=== PATIENT | male | born 1985 | race Two or more races ===

== ENCOUNTER 2024-01-29 15:34 | Inpatient (IN) | payer MEDICAID, SELFPAY ==
[2024-01-29 16:22] VITALS: BP 136/93; PULSE 93; RESP 20; TEMP 37.1; O2SAT 99; BMI 28.2
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
[2024-01-29] MEDS: Ampicillin Sodium/Sulbactam Na 3 GM in 0.9 % Sodium Chloride 100 ML IV (17:00)
[2024-01-29 17:02] LABS: INTERNATIONAL NORM RATIO 1.2 (0.9-1.1); Prothrombin Time 13.7 SEC (10.9-12.4)
--- NOTE | 2024-01-29 17:09 | PC.NURSE ---
patient comes in from triage, alert/oriented to person place however seems to nod off. iv inserted to rt ac, labs drawn, bc drawn x2, pt placed on cardiac sonographer nsr 70s on monitor,rr equal/non labored O2 sat 100% at this time, pt medicated per order, pt requesting po. pt stated he uses cocaine and denied heroin/fentanyl use. IV abx running per order, call ni within reach, plan of care ongoing.
[2024-01-29 17:14] LABS: Lactic Acid 0.8 mmol/L (0.5-2.0)
[2024-01-29 17:16] LABS: Alanine Aminotransferase 25 U/L (0-40); Albumin Level 4.4 g/dL (3.5-5.0); Alkaline Phosphatase 101 U/L (39-117); Anion Gap 11 (12-20); Aspartate Amino Transferase 29 U/L (5-37); Bilirubin Direct 0.2 mg/dL (0.0-0.5); Bilirubin Total 0.6 mg/dL (0.0-1.0); Blood Urea Nitrogen 12 mg/dL (9-16); C Reactive Protein 5.08 mg/dL (< or = 0.50); Calcium 9.1 mg/dL (8.4-10.2); Carbon Dioxide 25 mmol/L (22-29); Chloride 109 mmol/L (96-108); Estimated Glomerular Filt Rate > 60; Glucose Random 108 mg/dL (60-115); Magnesium 2.1 mg/dL (1.6-2.6); Potassium 3.3 mmol/L (3.3-5.1); Sodium 142 mmol/L (135-145); Total Protein 7.9 g/dL (6.5-8.0)
[2024-01-29 17:42] LABS: MANUAL DIFF FLAG SCAN; SCAN SMEAR FLAG 1
[2024-01-29 17:44] LABS: Basophils Percent Auto 0.3 % (0-2); Eosinophils Absolute Auto 0.2 X10*3/uL (0.0-0.4); Eosinophils Percent Auto 2.1 % (0-4); Hematocrit 39.6 % (42.0-52.0); Hemoglobin 13.3 g/dl (14.0-18.0); Imm Gran Abs Auto 0.02 X10*3/uL (0.00-0.03); Imm Gran Pct Auto 0.2 % (0.0-0.4); Lymphocytes Absolute Auto 1.3 X10*3/uL (1.2-4.9); Mean Corpuscular HGB Conc 33.6 g/dl (31.0-36.0); Mean Corpuscular Hemoglobin 27.9 pg (27.0-33.0); Mean Corpuscular Volume 83.2 fL (80.0-98.0); Mean Platelet Volume 13.7 fL (9.4-12.4); Monocytes Absolute Auto 0.7 X10*3/uL (0.1-1.2); Monocytes Percent Auto 7.8 % (2-11); Neutrophils Absolute Auto 7.1 x10*3/uL (2.0-8.3); Neutrophils Percent Auto 75.6 % (45-73); PLT ABN DIST 1; Platelet Count 200 X10*3/uL (160-400); Red Blood Count 4.76 X10*6/uL (4.60-5.80); Red Cell Distribution Width 12.4 % (11.0-16.0); White Blood Count 9.3 X10*3/uL (4.8-10.8)
[2024-01-29 18:00] VITALS: BP 174/103; PULSE 83; RESP 18; TEMP 36.6; O2SAT 99
[2024-01-29 18:14] LABS: SLIDE REVIEW VERIFIED
[2024-01-29 18:20] LABS: Erythrocyte Sedimentation Rate 13 MM/HR (0-15)
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
[2024-01-29 19:59] VITALS: BP 146/92; PULSE 78; RESP 18; TEMP 36.5; O2SAT 99
[2024-01-29 20:46] VITALS: BMI 30.6
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
[2024-01-29 21:43] VITALS: BP 145/94; PULSE 94; RESP 18; TEMP 37.3; O2SAT 99
[2024-01-30] MEDS: 0.9 % Sodium Chloride Flush 3 ML SYRINGE IVFLUSH ×2 (00:13→08:44)
[2024-01-30] MEDS: Ampicillin Sodium/Sulbactam Na 3 GM in 0.9 % Sodium Chloride 100 ML IV ×2 (00:13→07:59)
[2024-01-30 04:24] LABS: Amphetamine Screen Urine Not Detected (Not Detect); Barbiturates, Urine Not Detected (Not Detect); Benzodiazepines Screen Urine Not Detected (Not Detect); Buprenorphine Scr Not Detected (Not Detect); Cannabinoid Screen Urine POSITIVE (Not Detect); Cocaine Screen Urine POSITIVE (Not Detect); Fentanyl, urine POSITIVE (Not Detect); Methadone Screen, Urine Not Detected (Not Detect); Opiate Screen Urine Not Detected (Not Detect); Oxycodone Screen Urine Not Detected (Not Detect); Phencyclidine Screen Urine Not Detected (Not Detect)
[2024-01-30 06:13] LABS: Hematocrit 41.6 % (42.0-52.0); Hemoglobin 13.9 g/dl (14.0-18.0); Mean Corpuscular HGB Conc 33.4 g/dl (31.0-36.0); Mean Corpuscular Hemoglobin 28.3 pg (27.0-33.0); Mean Corpuscular Volume 84.6 fL (80.0-98.0); Mean Platelet Volume 13.5 fL (9.4-12.4); Platelet Count 183 X10*3/uL (160-400); Red Blood Count 4.92 X10*6/uL (4.60-5.80); Red Cell Distribution Width 12.7 % (11.0-16.0); White Blood Count 6.6 X10*3/uL (4.8-10.8)
[2024-01-30 06:24] LABS: Anion Gap 15 (12-20); Blood Urea Nitrogen 10 mg/dL (9-16); Carbon Dioxide 22 mmol/L (22-29); Chloride 107 mmol/L (96-108); Creatinine Clr Calc Pharmacy 144.2; Estimated Glomerular Filt Rate > 60; Glucose Random 88 mg/dL (60-115); Potassium 3.5 mmol/L (3.3-5.1); Sodium 140 mmol/L (135-145)
[2024-01-30 07:48] VITALS: BP 160/80; PULSE 76; RESP 16; TEMP 36.8; O2SAT 97
[2024-01-30] MEDS: Morphine Sulfate 4 MG/ML CARTRIDGE IVPUSH (07:58)
--- NOTE | 2024-01-30 08:25 | PHA.MEDREC ---
Pharmacy Consult ? Medication Reconciliation Pharmacy has completed the medication reconciliation.
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
--- NOTE | 2024-01-30 10:33 | MHC.CM.PN ---
Addendum entered by Flaquita Presley 01/30/24 12:09: PT LEFT AMA Original Note: PT, WHO IS KISWAHILI SPEAKING, REPORTS HE LIVES ALONE AND IS INDEPENDENT WITH CARE HE HAS NO DME AND NO SERVICES HE IS NOT INTERESTED IN COMPLETING A HCP AND HAS NO PCP PCP LIST PROVIDED DCP HOME NO SERVICES VIA SELF TRANSPORT
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
--- NOTE | 2024-01-30 11:38 | PC.NURSE ---
Pt left AMA. Pt of sound mind and able to make own decisions. Risks of leaving AMA explained. Pt continues to want to leave the hospital to go use street drugs. Provider notified.
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
--- NOTE | 2024-01-30 12:23 | HO.ADDICTCON ---
History of Present Illness Date of Service: 01/30/24 Chief Complaint: Left Hand Cellulitis Reason for Consult: substance use Sources of Information: patient interviewed and chart reviewed HPI Narrative: Patient is a 38 year old male medically admitted with cellulitis of the hand. UDS +cocaine and fentanyl. Patient seen in room 383, he was awake, alert, sitting in chair, engaged in interview. Appearing comfortable, and only complaint is pain in his left hand He reports cocaine use, via inhalation and IN route Reports many years of cocaine use Denies any history of opiate use--reviewed results for UDS and presentation in ED (somnolent). Denies any history of withdrawal sx Denies any history of IVDU Denies any other substance use including alcohol Denies any history of overdose Reviewed risk of overdose and eventual opiate addiction/dependance with ongoing fentanyl use Discussed risk reduction, including testing cocaine for fentanyl Review of Systems Constitutional: Reports as per HPI and Reports no additional constitutional complaints Diagnostics Vital Signs (24Hr): Vital Signs - 24 hr 01/29/24 16:22 01/29/24 18:00 01/29/24 19:59 Temperature 98.7 F 97.8 F 97.7 F Pulse Rate 93 83 78 Respiratory Rate 20 18 18 Blood Pressure 136/93 H 174/103 H 146/92 H Pulse Oximetry 99 99 99 Oxygen Delivery Method Room Air Room Air Room Air 01/29/24 21:43 01/30/24 07:48 Temperature 99.1 F 98.2 F Pulse Rate 94 76 Respiratory Rate 18 16 Blood Pressure 145/94 H 160/80 H Pulse Oximetry 99 97 Oxygen Delivery Method Room Air Room Air BMI result Body Mass Index 30.6 Labs 01/30/24 05:20 01/30/24 05:20 Labs: Laboratory Results - last 48 hr 01/29/24 01/30/24 01/30/24 16:49 03:50 05:20 WBC 9.3 6.6 RBC 4.76 4.92 Hgb 13.3 L 13.9 L Hct 39.6 L 41.6 L MCV 83.2 84.6 MCH 27.9 28.3 MCHC 33.6 33.4 RDW 12.4 12.7 Plt Count 200 183 MPV 13.7 H 13.5 H Immature Gran % (Auto) 0.2 Neut % (Auto) 75.6 H Lymph % (Auto) 14.0 L [place] % (Auto) 7.8 Eos % (Auto) 2.1 Baso % (Auto) 0.3 Lymph # (Auto) 1.3 [place] # (Auto) 0.7 Eos # (Auto) 0.2 Baso # (Auto) 0.0 Abs Immat Gran (auto) 0.02 Absolute Neuts (auto) 7.1 Absolute Nucleated RBC 0.000 0.000 Nucleated RBC % (auto) 0.0 0.0 Smear Tech's Comments VERIFIED ESR 13 PT 13.7 H INR 1.2 H Sodium 142 140 Potassium 3.3 3.5 Chloride 109 H 107 Carbon Dioxide 25 22 Anion Gap 11 L 15 BUN 12 10 Creatinine 0.78 0.73 Estim Creat Clear Calc 130.0 144.2 Estimated GFR > 60 > 60 Random Glucose 108 88 Lactic Acid 0.8 Calcium 9.1 9.0 Magnesium 2.1 Total Bilirubin 0.6 Direct Bilirubin 0.2 AST 29 ALT 25 Alkaline Phosphatase 101 C-Reactive Protein 5.08 H Total Protein 7.9 Albumin 4.4 Urine Opiates Screen Not Detected Ur Buprenorphine Scrn Not Detected Ur Oxycodone Screen Not Detected Urine Methadone Screen Not Detected Urine Fentanyl Screen POSITIVE H Ur Barbiturates Screen Not Detected Ur Phencyclidine Scrn Not Detected Ur Amphetamines Screen Not Detected U Benzodiazepines Scrn Not Detected Urine Cocaine Screen POSITIVE H U Marijuana (THC) Screen POSITIVE H Mental Status Exam Mental Status Exam Patient Appearance: Well Grooomed and Appropriate Level of Consciousness: Awake, Appropriate and Alert Patient Behavior: Appropriate, Talkative and Cooperative Mood Description: Calm Affect Description: Calm Speech Pattern: Clear Medications Allergies Allergies Allergy/AdvReac Type Severity Reaction Status Date / Time No Known Allergies Allergy Verified 01/29/24 16:25 [No Known Allergies*] Assessment & Plan Assessment & Plan (1) Cocaine use disorder: Status: Acute Code(s): F14.10 - Cocaine abuse, uncomplicated Assessment and Plan: shortly after interview, patient preparing to leave on self directed discharge t/w provided patient fentanyl test strips and instructions on how to use unable to provide take home narcan as he was walking out of his hospital room when seen the second time Total time managing care of this patient today __35__ minutes. PMFSH Social History Social History Patient Tobacco Use Status: Current everyday Tobacco user Tobacco use type: Cigarette Cigarette Packs Per Day: 1 Cigarettes Per Day: 20.0 Years Smoked: 20 Second Hand Smoke Exposure: Yes Substance Use Type: Crack/Cocaine service: No
== END 2024-01-30 11:40 | disposition left against medical advice (07) | DRG 383 ==
LOC: HO.ED 18:23 → HO.EDOVER 18:56 → HO.S3 19:43
PROVIDERS: Physician Assistant; Admitting Provider Student in an Organized Health Care Education/Training Program; Emergency Provider Emergency Medicine; Visit Provider Nurse Practitioner Acute Care
DX: L03.114 Cellulitis of left upper limb (principal); F14.920 Cocaine use, unspecified with intoxication, uncomplicated; Y04.2XXA Assault by strike against or bumped into by another person, initial encounter; F19.90 Other psychoactive substance use, unspecified, uncomplicated
CPT/HCPCS: 36415; 80048; 80076; 80307; 83605; 83735; 85025; 85027; 85610; 85652; 86140; 87040; 99285; J0295; J2270

== ENCOUNTER → 2024-01-29 18:46 | Outpatient (BNV) | payer MEDICAID, SELFPAY | PROVIDERS: Admitting Provider Student in an Organized Health Care Education/Training Program; Emergency Provider Emergency Medicine; Visit Provider Nurse Practitioner Psychiatric/Mental Health | DX: F14.10 Cocaine abuse, uncomplicated (principal) | CPT/HCPCS: 99222 ==

== ENCOUNTER → 2024-01-29 18:46 | Outpatient (BNV) | payer MEDICAID, SELFPAY | PROVIDERS: Admitting Provider Student in an Organized Health Care Education/Training Program; Emergency Provider Emergency Medicine; Visit Provider Physician Assistant | DX: S61.459A Open bite of unspecified hand, initial encounter (principal); W50.3XXA Accidental bite by another person, initial encounter; L03.114 Cellulitis of left upper limb | CPT/HCPCS: 99223 ==

== ENCOUNTER → 2024-01-29 18:46 | Outpatient (BNV) | payer MEDICAID, SELFPAY | PROVIDERS: Admitting Provider Student in an Organized Health Care Education/Training Program; Emergency Provider Emergency Medicine; Visit Provider Student in an Organized Health Care Education/Training Program | DX: L03.114 Cellulitis of left upper limb (principal); S61.452A Open bite of left hand, initial encounter; W50.3XXA Accidental bite by another person, initial encounter | CPT/HCPCS: 99223 ==